=== PATIENT | female | born 1985 ===

== ENCOUNTER 2017-07-21 12:10 | Emergency (ER) | payer OTHER ==
[2017-07-21 13:37] VITALS: TEMP 97.9; O2SAT 100
[2017-07-21 15:20] LABS: SQUAMOUS EPITHIAL 1 /hpf (0-5); URINE BILIRUBIN NEGATIVE (NEGATIVE); URINE BLOOD NEGATIVE (NEGATIVE); URINE CLARITY CLEAR (Clear); URINE COLOR YELLOW (YELLOW); URINE GLUCOSE (UA) NEG (Normal); URINE LEUKOCYTE ESTERASE NEG Leu/uL (Negative); URINE NITRATE NEGATIVE (NEGATIVE); URINE PROTEIN NEGATIVE (NEGATIVE); URINE UROBILINOGEN 0.2-1.0 mg/dL (0.2-1.0)
--- NOTE | 2017-07-21 15:39 | ED PDOC ---
HPI: Female Pain Time Seen by Provider: 07/21/17 14:10 Chief Complaint (Nursing): Female Genitourinary Chief Complaint (Provider): Pelvic pain History Per: Patient History/Exam Limitations: no limitations Onset/Duration Of Symptoms: Days (x3), Worse Since (onset) Current Symptoms Are (Timing): Still Present Quality Of Discomfort: "Pain" Associated Symptoms: denies: Fever, Chills, Back Pain Additional Complaint(s): Bhavana Cabral is a 32 year old female, with no significant past medical history, who presents to the emergency department complaining of a constant left pelvic pain onset for x3 days. Patient reports symptoms worsening since onset and the pain radiates down the left leg. She was recently treated for UTI, and finished her antibiotics last week. She reports vaginal discharge on Thursday but none today. Patient states she is not sexually active, she states that she was last sexually active was 5 months ago. She denies any fever, chills, N/V/D, or back pain. No further medical complaints. PMD: None provided. Past Medical History Reviewed: Historical Data, Nursing Documentation, Vital Signs Vital Signs: Last Vital Signs Temp 97.9 F 07/21/17 13:32 Pulse 73 07/21/17 13:32 Resp 16 07/21/17 13:32 BP 125/85 07/21/17 13:32 Pulse Ox 100 07/21/17 13:32 - Medical History PMH: No Chronic Diseases - Surgical History Surgical History: No Surg Hx - Family History Family History: States: Unknown Family Hx - Home Medications Home Medications: Ambulatory Orders Medication Instructions Recorded Doxycycline Hyclate 100 mg PO BID #28 capsule 07/21/17 Naproxen 500 mg PO BID #30 tab 07/21/17 - Allergies Allergies/Adverse Reactions: Allergies Allergy/AdvReac Type Severity Reaction Status Date / Time No Known Allergies Allergy Verified 07/21/17 13:32 Review of Systems ROS Statement: Except As Marked, All Systems Reviewed And Found Negative Constitutional: Negative for: Fever, Chills Genitourinary Female: Positive for: Pelvic Pain Musculoskeletal: Negative for: Back Pain Physical Exam - Reviewed Nursing Documentation Reviewed: Yes Vital Signs Reviewed: Yes - Physical Exam Comments: GENERAL APPEARANCE: Patient is awake, alert, oriented x 3, in mild painful distress. SKIN: Warm, dry; (-) cyanosis. EYES: (-) conjunctival pallor. ENMT: Mucous membranes moist. Airway patent: (-) stridor. Pharynx: (-) swelling , (-) erythema. NECK: (-) tenderness, (-) stiffness, (-) lymphadenopathy. CHEST AND RESPIRATORY: (-) wheezing; (-) rales, (-) rhonchi, (-) rub; breath sounds equal bilaterally. HEART AND CARDIOVASCULAR: (-) irregularity; (-) murmur, (-) gallop. ABDOMEN AND GI: Soft; (+) tenderness to the L pelvic, (-) CVA tenderness. PELVIC: normal external genitalia, (+) thin white vaginal discharge, (+) CMT tenderness, (+) mild pelvic & adnexal tenderness, (-) mass. A female RN, was present during the entire exam. EXTREMITIES: (-) deformity, (-) edema. NEURO AND PSYCH: Mental status as above; (-) focal findings. - Laboratory Results Result Diagrams: 07/21/17 15:40 07/21/17 15:40 - ECG O2 Sat by Pulse Oximetry: 100 (RA) Pulse Ox Interpretation: Normal Medical Decision Making Medical Decision Making: Initial Impression: Pelvic Pain Initial Plan: --Comp Metabolic Panel --CBC w/ differential --Toradol 30 mg IVP --Urine culture --POC Urine test --Urinalysis --Pelvis Ultrasound [US] --reevaluation 15:38 -Urine HCG negative, considering pt's symptoms and urinary HCG negative, pelvic ultrasound ordered including Doppler to rule out ovarian torsion. -Pelvic exam done by JERE rocephin 250 mg IV ordered to treat possible PID, US pelvic still pending at this time. 18:28 Pelvic US FINDINGS: Uterus/cervix: The uterus measures 9.8 x 4.5 6.1 cm. The endometrial stripe thickness is 10 mm. The uterus is anteverted. No myometrial mass. Right ovary: There are multiple right ovarian cysts, the largest appearing complex and measuring a maximum of 2.2 cm. The right ovary measures 6.7 x 2.7 x 3.9 cm with normal Doppler flow. Normal blood flow. Left ovary: The left ovary measures 2.8 x 1.9 x 1.7 cm with normal Doppler flow. Normal blood flow. Free fluid: No free fluid. Bladder: Unremarkable as visualized. Wall is normal thickness for degree of distention. IMPRESSION: There are multiple right ovarian cysts, the largest appearing complex and measuring a maximum of 2.2 cm. --During reevaluation, abdomen is soft, non tender, no guarding or rebound. lab results and ultrasound discussed with patient in great detail. Counseling was provided and all questions were answered regarding diagnosis with patient. --Based on history, exam and diagnostic results plan will be for follow up with outpatient clinic 18:50 --Advised to follow up with primary care physician in 1-2 days without fail. Advised to take medication as prescribed. Return to the emergency room at any time for any new or worsening symptoms. Patient states he/she fully agrees with and understands discharge instructions. States that he/she agrees with the plan and disposition. Verbalized and repeated discharge instructions and plan. I have given the patient opportunity to ask any additional questions. ~ Scribe Attestation: Documented by Filippo Jamison, acting as a scribe for Alisson Mcdowell PA-C. Provider Scribe Attestation: All medical record entries made by the Scribe were at my direction and personally dictated by me. I have reviewed the chart and agree that the record accurately reflects my personal performance of the history, physical exam, medical decision making, and the department course for this patient. I have also personally directed, reviewed, and agree with the discharge instructions and disposition. Disposition - Clinical Impression Clinical Impression: Pelvic pain, PID (acute pelvic inflammatory disease) - Disposition Referrals: [facility] [Outside] Disposition Time: 18:50 Condition: IMPROVED Additional Instructions: Thank you for letting us take care of you today. You were treated for pelvic pain, PID. The emergency medical care you received today was directed at your acute symptoms. If you were prescribed any medication, please fill it and take as directed. It may take several days for your symptoms to resolve. Return to the Emergency Department if your symptoms worsen, do not improve, or if you have any other problems. Please contact your doctor in 2 days for re-evaluation and follow up / or call one of the physicians/clinics you have been referred to that are listed on the Patient Visit Information form that is included in your discharge packet. Bring any paperwork you were given at discharge with you along with any medications you are taking to your follow up visit. Our treatment cannot replace ongoing medical care by a primary care provider (PCP) outside of the emergency department. Thank you for allowing the [facility] team to be part of your care today. If you had an STI test: It will take 48 hours for the results. Please call after 1 week if you have not heard back. Prescriptions: Doxycycline Hyclate 100 mg PO BID #28 capsule Naproxen 500 mg PO BID #30 tab Instructions: Pelvic Inflammatory Disease (ED), Pelvic Pain in Women (ED) Forms: [place] (Algerian), [facility] ED School/Work Excuse Print Language: ETHIOPIAN
[2017-07-21 15:58] LABS: BASO % 0.4 % (0.0-2.0); EOS # 0.1 K/uL (0.0-0.7); EOS % 1.3 % (0.0-4.0); HEMOGLOBIN 12.3 g/dL (12.0-16.0); LYMPH # 2.9 K/uL (1.0-4.3); LYMPH % 38.5 % (20.0-40.0); MEAN CELL VOLUME 84.6 fl (81.0-99.0); MEAN CORPUSCULAR HEMOGLOBIN 27.8 pg (27.0-31.0); MEAN CORPUSCULAR HGB CONC 32.8 g/dL (33.0-37.0); MONO # 0.4 K/uL (0.0-0.8); MONO % 5.4 % (0.0-10.0); NEUT # 4.1 K/uL (1.8-7.0); NEUT % 54.4 % (50.0-75.0); RBC 4.42 Mil/uL (3.80-5.20); WHITE BLOOD COUNT 7.6 K/uL (4.8-10.8)
[2017-07-21 16:04] LABS: ALB/GLOB RATIO 1.2 (1.0-2.1); ALBUMIN 4.3 g/dL (3.5-5.0); ALT/SGPT 28 U/L (9-52); AST/SGOT 26 U/L (14-36); BLOOD UREA NITROGEN 18 mg/dl (7-17); CALCIUM 8.8 mg/dL (8.4-10.2); GFR AFRICAN-AMERICAN > 60; GFR NON-AFRICAN AMERICAN > 60
[2017-07-21] MEDS ORDERED: cefTRIAXone (Rocephin) 250 mg Inj IVPB STA (16:05)
[2017-07-21 19:10] VITALS: BP 126/52; PULSE 67; RESP 18
--- NOTE | 2017-07-22 12:46 | US ---
HISTORY: L pelvic pain COMPARISON: None available. TECHNIQUE: Grayscale, color Doppler and spectral evaluation the pelvis performed transabdominally. FINDINGS: UTERUS: Measures 9.9 x 5.7 x 3.7 cm. Anteverted. Normal in size and appearance. No fibroid or other mass lesion seen. ENDOMETRIUM: Measures 10 mm in diameter. Unremarkable. CERVIX: No cervical abnormality identified. RIGHT OVARY: Measures 6.7 x 3.9 x 2.7 cm. Multiple right ovarian cysts, the largest of which measures 2.0 x 2.2 x 2.0 centimeter and contains echogenic material in along its dependent portion. Normal flow. LEFT OVARY: Measures 2.9 x 1.9 x 1.7 cm. No solid mass. Normal flow. FREE FLUID: No significant free fluid noted. OTHER FINDINGS: None. IMPRESSION: Symmetric Doppler flow to both ovaries. Multiple right ovarian cysts, the largest of which is complex and measures up to 2.2 centimeter. This may represent a hemorrhagic ovarian cyst with retracted clot with other etiologies not excluded. Follow-up pelvic ultrasound is recommended to assess for resolution.
== END 2017-07-21 19:10 | disposition home or self-care (01) ==
LOC: H.ER 12:10
DX: N73.9 Female pelvic inflammatory disease, unspecified (principal); N83.201 Unspecified ovarian cyst, right side
CPT/HCPCS: 76856; 80053; 81003; 81025; 85025; 87086; 87491; 87591; 96365; 96375; 99283; J0696; J1885